=== PATIENT | female | born 1935 | race Caucasian/White ===

== ENCOUNTER 2021-04-17 12:07 | Outpatient (REF) | payer MEDICARE, OTHER, SELFPAY ==
--- NOTE | 2021-04-17 14:16 | MHC.AU.ANR ---
Adult Audiological Evaluation Date of Visit: 04/17/21 Reason for Appointment: Audiological evaluation due to concern for decreased hearing. Mrs. Mccray states that she has trouble hearing her , and he often notes that she doesn't hear him. She also notes difficulties hearing the TV. She feels she hears well in most other situations. Does patient feel they have a hearing loss?: Yes If Yes, Which Ear?: Both Ears When Was Hearing Difficulty First Noticed?: Gradually over the last few years Has hearing been tested previously?: No Hearing Handicap Inventory: HHIE SCORE: 20 Based on HHIE score, patient has: Mild to moderate perceived hearing handicap Ear History: Blocked/Full Sensation in Ear(s): Occasionally Medical History: Medical History: Head Injury, Heart Problems, High Blood Pressure, Thyroid Disease Medical History (Other): Six stents in heart, two knee replacements (right knee 20 years ago, left knee 09/07/20). Ladder fell on head and had stitches Allergies: NKA Medication List: Atorvastatin, Levothyroxine, Losartan, Omeprazole, Clopidogrel, Nystatin, Aspirin, Tylenol, Calcium & Vitamin D3, CBD Otoscopy: Right Ear: Unremarkable Left Ear: Some scarring on TM, possible middle-ear fluid Tympanometry: Tympanometry performed due to: To assess integrity of the middle ear system Right Ear: Normal Middle Ear System (Type A) Left Ear: Non-compliant Middle Ear System (Type B) Hearing Evaluation: Transducer(s) Used: Insert Earphones, Bone Conduction Method: Conventional Audiometry Stimuli Used: Right Ear: Description of Hearing: Mild sloping to severe sensorineural hearing loss from 250-8000 Hz. Left Ear: Description of Hearing: Moderate mixed hearing loss at 250 Hz, rising to mild sensorineural hearing loss from 500-2000 Hz, and sloping to a moderate mixed hearing loss at 3000 Hz, and a moderate sloping to profound sensorineural hearing loss from 4132-3095 Hz. Speech Recognition Threshold (SRT): Method Used: Monitored Live Voice Stimuli Used: Spondee Words Right Ear: 35 dBHL Left Ear: 35 dBHL Word Discrimination: Method: Recorded Lists Word Lists Used: NU-6 Right Ear: 88% at 75 dBHL Left Ear: 88% at 75 dBHL Interpretation of Results: Mild sloping to severe/profound sensorineural hearing loss bilaterally, with a slight mixed component in the left ear in the presence of middle-ear dysfunction. Recommendations: Based on her hearing loss, Ms. Mccray is considered a candidate for hearing aids. However, she doesn't feel her hearing loss is impacting her enough to pursue hearing aids at this time. Discussed communication strategies to use with her . Advised to return in one year to monitor hearing and left middle-ear dysfunction, or sooner if changes are noted. Diagnosis: Primary Diagnosis: H90.3 Bilateral Sensorineural Hearing Loss Secondary Diagnosis: H69.92 Unspecified Eustachian Tube Dysfunction, Left Ear Services Performed: Services Performed: Comprehensive Audiological Evaluation (CPT 24423) Tympanometry (CPT 65041) Signature: Provider: Ruperto Posey, CCC-A
== END 2021-04-17 12:08 | disposition home or self-care (01) ==
LOC: HO.SH 12:07
PROVIDERS: Visit Provider Physician Assistant
DX: H90.3 Sensorineural hearing loss, bilateral (principal); H69.92 Unspecified Eustachian tube disorder, left ear
CPT/HCPCS: 92557; 92567

== ENCOUNTER 2021-07-14 15:18 | Outpatient (REF) | payer MEDICARE, OTHER, SELFPAY ==
--- NOTE | ~2021-07-14 | XR_ITS ---
EXAMINATION: XR HUMERUS, RIGHT CLINICAL INFORMATION: Contusion right upper arm COMPARISON: None TECHNIQUE: AP and lateral views of the right humerus. FINDINGS: The bones and soft tissues are normal. No fracture. Imaged portions of the shoulder and elbow are unremarkable. XR/XR humerus RT IMPRESSION: Normal right humerus.
== END 2021-07-14 15:19 | disposition home or self-care (01) ==
LOC: HO.HMGCX 15:18
PROVIDERS: Visit Provider Internal Medicine
DX: S40.021A Contusion of right upper arm, initial encounter (principal)
CPT/HCPCS: 73060

== ENCOUNTER 2024-08-24 07:11 | Day surgery (SDC) | payer MEDICARE, OTHER, SELFPAY ==
--- OUTSIDE RECORDS SUMMARY | 2024-07-29 15:58 | XMS_ITS | Patient Health Record ---
[facility] Kaila giovanna Grady Address [address] [place] [address] Care Team Providers Care Aircraft Pilot Name Role Phone Marge Jeronimo Primary Care Provider Josie Street Unavailable [phone] Allergies Allergen (clinical drug ingredient) Drug/Non Drug Allergy documented on EMR Reaction Allergy Type Onset Date Status erythromycin Erythromycin Unknown Drug Allergy A ctive Reason For Referral No Information Medications Medication SIG (Take, Route, Frequency, Duration) Notes Start Date End Date Status dilTIAZem HCl ER 120 MG 1 capsule Orally Twice a day Active Furosemide 20 MG TAKE 1 TABLET BY RISSA TH EVERY DAY Oral for 90 Active Losartan Potassium 50 MG TAKE 1 TABLET B Y MOUTH EVERYDAY AT BEDTIME Oral for 90 Days Active Aspirin Low Dose 81 MG 1 tablet Orally O nce a day for 30 day(s) 04/12/2023 Active Tylenol 04/12/2023 Active Calcium + D + K 04/12/2023 Act yolanda Nystatin 010428 UNIT/GM APPLY THIN LAYER TO ABDOMINAL FOLDS, NEEDED External for 30 Active Levothyroxine Sodium 112 MCG Oral for 90 Days Active Clopidogrel Bisulfate 75 MG TAKE 1 TABLE T BY MOUTH EVERY DAY Oral for 90 Days Active Omeprazole 20 MG TAKE 1 CAPSULE BY MO UTH EVERY DAY IN THE MORNING Oral for 90 Days Active Atorvastatin Calcium 40 MG TAKE 1 TABLET BY MOUTH EVERYDAY AT BEDTIME Oral for 90 Days Active Social History Tobacco Use: Social History Observation Description Date Details (start date - stop date) Never Smoker NA - NA Tobacco use other than smoking: Question Answer Notes Are you an other tobacco user? No Tobacco Control (Standard) Question Answer Notes Tobacco use: Nonsmoker Additional Findings: Tobacco non-user Current no nsmoker AUDIT-C (Standard) Question Answer Notes Did you have a drink containing alcohol in the p ast year? No Points 0 Interpretation Negative Problems Problem Type SNOMED Code ICD Code Onset Dates Problem Status W/U Status Risk Notes Problem Acquired hammer toe of right foot (6497208082106163) Other hammer toe(s) (acquired), right foot (M20.41) Active confirmed Problem Acquired hammer toe of left foot (2514904499906962) Other hammer toe(s) (acquired), left foot (M20.42) Active confirmed Problem Atherosclerosis of torres martinez arteries of the extremities (522574566471259) Atherosclerosis of torres martinez artery of both lower extremities, with unspecified presence of clinical manifestation (I70.203) Active confirmed Q7(A), Q8(2B), Q9(1B,2 C) Problem Localized, primary osteoarthritis of the ankle and/or foot (556196251) Arthritis of joint of lesser toe, left (M19.072) Active confirmed Problem Localized, primary osteoarthritis of the ankle and/or foot (764144614) Arthritis of joint of lesser toe, right (M19.071) Active confirmed Vital Signs Blood pressure diastolic 77 mm Hg 06/18/2024 Height 5 ft in 06/18/2024 Blood pressure systolic 125 mm Hg 06/18/2024 Weight 150 lbs 06/18/2024 BMI 29.29 kg/m2 06/18/2024 Procedures Procedure Date Ordered Date Performed Result Body Sit e 55431-NQHRNOQ NAIL, 1-08/05/2023 N/A 65663-MJUPDOX NAIL, 1-11/28/2023 N/A 66613-QVYXLDT NAIL, 1-03/16/2024 N/A 51052-TXZZ SKIN LESIONS, OVER 4 03/16/2024 N/A G1362-OVWCHABC DYSTROPHIC NAILS ANY # 03/16/2024 N/A 38597-WAHZBQU NAIL, 1-06/18/2024 N/A 95716-SHZY SKIN LESIONS, OVER 4 06/18/2024 N/A F5106-LIJJEXTZ DYSTROPHIC NAILS ANY # 06/18/2024 N/A Encounters Encounter Location Date Provider Diagnosis [facility] [address] [place] [address] 08/05/2023 Josie Black Tinea unguium B35.1 and Pain in right toe(s) M79.[address] [address] 11/28/2023 Josie Black Tinea unguium B35.1 and Pain in right toe(s) M79.[address] [address] 03/16/2024 Josie Black Tinea unguium B35.1 ; Pain in right toe(s) M79.674 ; Other hammer toe(s) (acquired), right foot M20.41 ; Pain in left toe(s) M79.675 ; Other hammer toe(s) (acquired), left foot M20.42 and Atherosclerosis of torres martinez artery of both lower extremities, with unspecified presence of clinical manifestation I70.[address] [address] 06/18/2024 Josie Black Tinea unguium B35.1 ; Pain in right toe(s) M79.674 ; Other hammer toe(s) (acquired), right foot M20.41 ; Pain in left toe(s) M79.675 and Atherosclerosis of torres martinez artery of both lower extremities, with unspecified presence of clinical manifestation I70.203 Assessments Encounter Date Diagnosis (ICD Code) Assessment Notes Treatment Notes Treatment Clinical Notes Section Notes 08/05/2023 Tinea unguium (ICD-10 - B35.1) 08/05/2023 Pain in right toe(s) (ICD-10 - M79.674) 11/28/2023 Tinea unguium (ICD-10 - B35.1) 11/28/2023 Pain in right toe(s) (ICD-10 - M79.674) 03/16/2024 Tinea unguium (ICD-10 - B35.1) 06/18/2024 Tinea unguium (ICD-10 - B35.1) 06/18/2024 Pain in right toe(s) (ICD-10 - M79.674) 03/16/2024 Pain in right toe(s) (ICD-10 - M79.674) 03/16/2024 Other hammer toe(s) (acquired), right foot (ICD-10 - M20.41) 06/18/2024 Other hammer toe(s) (acquired), right foot (ICD-10 - M20.41) 06/18/2024 Pain in left toe(s) (ICD-10 - M79.675) 03/16/2024 Pain in left toe(s) (ICD-10 - M79.675) 03/16/2024 Other hammer toe(s) (acquired), left foot (ICD-10 - M20.42) 06/18/2024 Atherosclerosis of torres martinez artery of both lower extremities, with unspecified presence of clinical manifestation (ICD-10 - I70.203) Q7(A), Q8(2B), Q9(1B,2C) 03/16/2024 Atherosclerosis of torres martinez artery of both lower extremities, with unspecified presence of clinical manifestation (ICD-10 - I70.203) Q7(A), Q8(2B), Q9(1B,2C) Plan Of Treatment Pending Test Test Name Order Date 46995-EBWPMRF NAIL, -04/22/2023 30954-XYBVISS NAIL, 02-2208/05/2023 44311-YTJOZKS NAIL, 02-2211/28/2023 51786-ADVCDOG NAIL, 02-2203/16/2024 72627-TWNNPZR NAIL, -06/18/2024 71491-Fikityns Plate 04/22/2023 40716-FALA SKIN LESIONS, OVER 4 06/19/19 25 35645-MMXY SKIN LESIONS, OVER 4 03/16/19 25 Y7951-BMEWLACU DYSTROPHIC NAILS ANY # A8788-EKLYAKBL DYSTROPHIC NAILS ANY # Next Appt Details Provider Name:Josie Pimentel , 10/01/2024 01:00:00 PM, [address], [place], [address], Insurance Providers Payer Name Payer Address Payer Phone Subscriber Number Group Number Insured Name Patient Relationship to Insured Coverage Start Date Coverage End Date Medicare National [employer] [address] [facility] [place] [address] [id number] Guerda Mccray Self - patient is the insured [facility] [address] [place] [address] [phone] [id number] Guerda Mccray Self - patient is the insured Medical (General) History Medical History History ICD Code Arthritis covid-19 Hiatal hernia High blood pressure Reflux ( GERD) thyroid Measles Mumps Chicken pox Joint implants/screws stints - heart tail bone fracture Hallux valgus (acquired), left foot M20. 12 Hallux valgus (acquired), right foot M20 .11 Surgical History Surgery Date(Month/Year) knee replacement 2002 & 2021 carpal tunnel surgery
[2024-08-19 15:27] VITALS: BMI 28.7
--- NOTE | 2024-08-20 10:05 | HO.ANESPROP2 ---
Documented by User: Usha Saeed NP 08/20/24 10:11 HPI - Anesthesia Eval Consult details Narrative: 89yo F for Right Cataract Extraction IOL Insertion No previous cataract on record CAD s/p stents x 6 2014 Aortic stenosis - requested ECHO [facility] Active Problems Active Problems: All Active Problems Contusion of arm, right (Acute) Past Medical History Medical History (Updated 08/19/24 @ 16:13 by Carolyn Hamilton, ELIJAH) History of positive PPD Esophageal reflux Pure hypercholesterolemia Osteoporosis Aortic insufficiency Microalbuminuria Spondylosis of cervical region without myelopathy or radiculopathy Right carpal tunnel syndrome Osteoarthritis Left carpal tunnel syndrome Hx of closed fracture (09/2023) Hypothyroidism Pre-diabetes Aortic stenosis HTN (hypertension) CAD (coronary artery disease) Bilateral cataracts Surgical History Surgical History (Updated 08/19/24 @ 15:12 by Carolyn Hamilton RN) History of heart artery stent (2014) Social History Social History Patient Tobacco Use Status: Former Tobacco user Second Hand Smoke Exposure: No Have you been hit, kicked, punched, or otherwise hurt by someone within the past year? If so, by whom?: No Are you DNR?: No Advance Directives: No Advance Directives Information Provided: Yes Advance Directives on File: No Patient : No : No Poor oral hygiene: No Meds Allergies Allergy/AdvReac Type Severity Reaction Status Date / Time azithromycin Allergy Unknown Unknown Verified 07/14/21 14:46 erythromycin base Allergy Unknown Verified 08/19/24 15:21 Home Medications ?Medication ?Instructions ?Recorded ?Confirmed ?Last Taken ?Type atorvastatin 40 mg tablet 40 mg PO DAILY 07/14/21 08/19/24 Unknown History clopidogrel 75 mg tablet 75 mg PO DAILY 07/14/21 08/19/24 Unknown History levothyroxine 112 mcg tablet 112 mcg PO QAM 07/14/21 08/19/24 Unknown History losartan 50 mg tablet 50 mg PO DAILY 07/14/21 08/19/24 Unknown History nystatin 100,000 unit/gram topical 1 appl topical BID 07/14/21 08/19/24 Unknown History cream omeprazole 20 mg capsule,delayed 20 mg PO BID 07/14/21 08/19/24 Unknown History release acetaminophen 650 mg 650 mg PO Q6H PRN Pain 08/19/24 08/19/24 Unknown History tablet,extended release aspirin 81 mg tablet 81 mg PO DAILY 08/19/24 08/19/24 Unknown History calcium 600 mg (as 1 tab PO DAILY 08/19/24 08/19/24 Unknown History carbonate)-vitamin D3 10 mcg (400 unit) tablet furosemide 20 mg tablet 20 mg PO DAILY 08/19/24 08/19/24 Unknown History Exam Height,Weight and Vital Signs: Height 5 ft Weight 66.6 kg Assessment and Plan Assessment Anesthesia Assessment: Chart Reviewed Documented by User: Daylin Bill MD 08/24/24 07:50 [facility] Past Medical History Medical History (Updated 08/19/24 @ 16:13 by Carolyn Hamilton RN) History of positive PPD Esophageal reflux Pure hypercholesterolemia Osteoporosis Aortic insufficiency Microalbuminuria Spondylosis of cervical region without myelopathy or radiculopathy Right carpal tunnel syndrome Osteoarthritis Left carpal tunnel syndrome Hx of closed fracture (09/2023) Hypothyroidism Pre-diabetes Aortic stenosis HTN (hypertension) CAD (coronary artery disease) Bilateral cataracts Family History Family history of problems with anesthesia: No Surgical History Surgical History (Updated 08/19/24 @ 15:12 by Carolyn Hamilton RN) History of heart artery stent (2014) History of Problems with Anesthesia: No Social History Social History Patient Tobacco Use Status: Former Tobacco user Second Hand Smoke Exposure: No Have you been hit, kicked, punched, or otherwise hurt by someone within the past year? If so, by whom?: No Are you DNR?: No Advance Directives: No Advance Directives Information Provided: Yes Advance Directives on File: No Patient : No : No Poor oral hygiene: No Meds Allergies Allergy/AdvReac Type Severity Reaction Status Date / Time azithromycin Allergy Unknown Unknown Verified 07/14/21 14:46 erythromycin base Allergy Unknown Verified 08/19/24 15:21 Home Medications ?Medication ?Instructions ?Recorded ?Confirmed ?Last Taken ?Type atorvastatin 40 mg tablet 40 mg PO DAILY 07/14/21 08/19/24 Unknown History clopidogrel 75 mg tablet 75 mg PO DAILY 07/14/21 08/19/24 Unknown History levothyroxine 112 mcg tablet 112 mcg PO QAM 07/14/21 08/19/24 Unknown History losartan 50 mg tablet 50 mg PO DAILY 07/14/21 08/19/24 Unknown History nystatin 100,000 unit/gram topical 1 appl topical BID 07/14/21 08/19/24 Unknown History cream omeprazole 20 mg capsule,delayed 20 mg PO BID 07/14/21 08/19/24 Unknown History release acetaminophen 650 mg 650 mg PO Q6H PRN Pain 08/19/24 08/19/24 Unknown History tablet,extended release aspirin 81 mg tablet 81 mg PO DAILY 08/19/24 08/19/24 Unknown History calcium 600 mg (as 1 tab PO DAILY 08/19/24 08/19/24 Unknown History carbonate)-vitamin D3 10 mcg (400 unit) tablet furosemide 20 mg tablet 20 mg PO DAILY 08/19/24 08/19/24 Unknown History Exam Airway Mallampati Class: II TM Dist: >3cm Neck ROM: Full Heart: rrr Lungs: cta Assessment and Plan Assessment Anesthesia Assessment: Anesthesia Plan Discussed Final Anesthetic Review Family History of Problems with Anesthesia: No History of Problems with Anesthesia: No NPO: Yes ASA Class: III Final Preanesthetic Review: No Changes in Pt Med Stat, Meds/Allgs Chart Reviewed and Consent Obtained/Reviewed Patient Risk: Low Procedure Risk: Low Anesthetic Plan Anesthetic Plan: MAC: Disposition: Standard PACU
[2024-08-24] MEDS: Tetracaine HCl/PF 0.5% Oph Sol 4 ML DROPS 1 DROP EYE-RIGHT (07:40)
[2024-08-24 07:41] VITALS: BP 173/62; PULSE 78; RESP 16; TEMP 37.1; O2SAT 98
[2024-08-24] MEDS: Cyclopentolate 1 % Ophth Sol 2 ML DRPBTL 1 DROP EYE-RIGHT ×3 (07:44→07:57)
[2024-08-24] MEDS: Lactated Ringers 500 ML 50 ML IV (07:49)
[2024-08-24] MEDS: Tropicamide 1 % Ophth Sol 3 ML BTL 1 DROP EYE-RIGHT ×3 (07:50→07:58)
[2024-08-24] MEDS: Ketorolac Tromethamine 0.5% Op 5 ML DROPS 1 DROP EYE-RIGHT ×3 (07:51→07:59)
[2024-08-24] MEDS: Phenylephrine HCL 2.5% Oph SoL 2 ML BOTTLE 1 DROP EYE-RIGHT ×3 (07:52→08:00)
--- NOTE | 2024-08-24 08:39 | MHC.SHP ---
Pre-Procedural Eval Section A - 24 Hr Update-Section A only Date of Service: 08/24/24 The patient is an INPATIENT: No Changes since office visit: No Cold of Flu in the past 2 weeks, No New Medical Problems, No Changes in Medication and No Patient answered all questions The patient has been examined within 24 hours of the surgical procedure. The History & Physical has been completed within 30 days and I have reviewed it.: Yes Section B - Complete if H&P > 30 days Chief Complaint: Age-related nuclear cataract, right eye Allergies: Allergies Allergy/AdvReac Type Severity Reaction Status Date / Time azithromycin Allergy Unknown Unknown Verified 07/14/21 14:46 erythromycin base Allergy Unknown Verified 08/19/24 15:21 Plan Diagnosis/Plan: Unchanged I have reviewed the history and physical and performed a pertinent physical examination on my patient. No changes have occurred unless specified. Time Spent With Patient Time: Total time managing care of this patient today ____ minutes.
--- NOTE | 2024-08-24 08:40 | P.PCNO_ITS ---
Ophthalmology Procedure Procedure Date of Service: 08/24/24 Ophthalmology Viscoelastic: Healon Duet Dual Pack Pro Ophthalmology Lenses: IOL Acrysof MP - MA60AC (20.5) Procedure Notes: PREOPERATIVE DIAGNOSIS: Decreased visual acuity right eye secondary to cataract POSTOPERATIVE DIAGNOSIS: Same PROCEDURE: Right cataract extraction with intraocular lens insertion SURGEON: Ap Cavazos M.D. ANESTHESIA: Topical/MAC ESTIMATED BLOOD LOSS: None COMPLICATIONS: None After obtaining informed consent, the patient was brought to the operating room suite and placed in the supine position. After adequate sedation per anesthesia, topical drops of Tetracaine were given to the right eye. The eye was then prepped and draped in the usual sterile fashion. The operating room microscope was then positioned over the operative eye and a lid speculum placed. A paracentesis was created. Viscoelastic was then instilled into the anterior chamber. A three plane incision was then created temporally, utilizing a 2.85 mm keratome. Capsulotomy forceps were then utilized to create a circular tear capsulotomy. Hydrodissection and hydrodelineation were carried out until adequate mobilization of the nucleus occurred. Phacoemulsification was then utilized to remove the dense central nu cleus followed by removal of the cortical material utilizing the automated aspiration irrigation unit. Viscoelastic was instilled into the posterior capsular bag followed by placement of a posterior chamber intraocular lens without difficulty. The residual Viscoelastic was then removed utilizing the automated IA machine. The wound was checked and found to be watertight. The patient tolerated the procedure well and the lid speculum was removed. Intracameral injection of Vigamox 0.1 mL followed by a subtenon injection of Kenalog-40 0.2 mL were administered. The patient will be seen in the a.m.
[2024-08-24 09:03] VITALS: BP 152/58; PULSE 65; RESP 17; TEMP 36.5; O2SAT 99
== END 2024-08-24 09:15 | disposition home or self-care (01) ==
PROVIDERS: PCP Internal Medicine; Visit Provider Ophthalmology
PROC: (CPT 66985; principal; 2024-08-24 09:30)
DX: H25.11 Age-related nuclear cataract, right eye (principal); H52.4 Presbyopia; H18.413 Arcus senilis, bilateral; H04.123 Dry eye syndrome of bilateral lacrimal glands; I10 Essential (primary) hypertension; E78.00 Pure hypercholesterolemia, unspecified; R73.03 Prediabetes; E03.9 Hypothyroidism, unspecified; I25.10 Atherosclerotic heart disease of native coronary artery without angina pectoris; Z95.5 Presence of coronary angioplasty implant and graft; M81.0 Age-related osteoporosis without current pathological fracture; Z79.01 Long term (current) use of anticoagulants; Z79.82 Long term (current) use of aspirin; Z79.899 Other long term (current) drug therapy; Z88.1 Allergy status to other antibiotic agents; Z96.653 Presence of artificial knee joint, bilateral
CPT/HCPCS: 66984; J2250; J3301; V2630

== ENCOUNTER 2024-09-07 07:11 | Day surgery (SDC) | payer MEDICARE, OTHER, SELFPAY ==
[2024-08-19 15:36] VITALS: BMI 28.7
--- NOTE | 2024-09-04 09:59 | HO.ANESPROP2 ---
Documented by User: Usha Saeed NP 09/04/24 10:05 HPI - Anesthesia Eval Consult details Narrative: 89yo F for Left Cataract Extraction IOL Insertion Right eye 08/24/24: Midaz 0.5 CAD s/p stents x 6 2014 Aortic stenosis - moderate to severe by gradient PMFSH Active Problems Active Problems: All Active Problems Contusion of arm, right (Acute) Past Medical History Medical History History of positive PPD Esophageal reflux Pure hypercholesterolemia Osteoporosis Aortic insufficiency Microalbuminuria Spondylosis of cervical region without myelopathy or radiculopathy Right carpal tunnel syndrome Osteoarthritis Left carpal tunnel syndrome Hx of closed fracture (09/2023) Hypothyroidism Pre-diabetes Aortic stenosis HTN (hypertension) CAD (coronary artery disease) Bilateral cataracts Family History Family history of problems with anesthesia: No Surgical History Surgical History History of surgery History of knee replacement H/O: hysterectomy Hx of right cataract extraction (08/24/24) History of heart artery stent (2014) History of Problems with Anesthesia: No Social History Social History Patient Tobacco Use Status: Former Tobacco user Second Hand Smoke Exposure: No Use of substances other than those prescribed or required for medical reasons: No Are you DNR?: No Advance Directives: No Advance Directives Information Provided: Yes Patient : No : No Poor oral hygiene: No Meds Allergies Allergy/AdvReac Type Severity Reaction Status Date / Time azithromycin Allergy Unknown Unknown Verified 07/14/21 14:46 erythromycin base Allergy Unknown Verified 08/19/24 15:21 Home Medications ?Medication ?Instructions ?Recorded ?Confirmed ?Last Taken ?Type atorvastatin 40 mg tablet 40 mg PO DAILY 07/14/21 08/19/24 08/23/24 History clopidogrel 75 mg tablet 75 mg PO DAILY 07/14/21 08/19/24 09/07/24 History levothyroxine 112 mcg tablet 112 mcg PO QAM 07/14/21 08/19/24 09/07/24 History losartan 50 mg tablet 50 mg PO DAILY 07/14/21 08/19/24 08/23/24 History nystatin 100,000 unit/gram topical 1 appl topical BID 07/14/21 08/19/24 08/23/24 History cream omeprazole 20 mg capsule,delayed 20 mg PO BID 07/14/21 08/19/24 08/23/24 History release acetaminophen 650 mg 650 mg PO Q6H PRN Pain 08/19/24 08/19/24 09/07/24 History tablet,extended release aspirin 81 mg tablet 81 mg PO DAILY 08/19/24 08/19/24 08/23/24 History calcium 600 mg (as 1 tab PO DAILY 08/19/24 08/19/24 08/23/24 History carbonate)-vitamin D3 10 mcg (400 unit) tablet furosemide 20 mg tablet 20 mg PO DAILY 08/19/24 08/19/24 08/23/24 History Exam Height,Weight and Vital Signs: Height 5 ft Weight 66.6 kg Narrative Narrative: ECHO 2023 Assessment and Plan Assessment Anesthesia Assessment: Chart Reviewed Final Anesthetic Review Family History of Problems with Anesthesia: No History of Problems with Anesthesia: No Documented by User: Shari Montez MD 09/07/24 08:22 [facility] Past Medical History Medical History History of positive PPD Esophageal reflux Pure hypercholesterolemia Osteoporosis Aortic insufficiency Microalbuminuria Spondylosis of cervical region without myelopathy or radiculopathy Right carpal tunnel syndrome Osteoarthritis Left carpal tunnel syndrome Hx of closed fracture (09/2023) Hypothyroidism Pre-diabetes Aortic stenosis HTN (hypertension) CAD (coronary artery disease) Bilateral cataracts Surgical History Surgical History History of surgery History of knee replacement H/O: hysterectomy Hx of right cataract extraction (08/24/24) History of heart artery stent (2014) Social History Social History Patient Tobacco Use Status: Former Tobacco user Second Hand Smoke Exposure: No Use of substances other than those prescribed or required for medical reasons: No Are you DNR?: No Advance Directives: No Advance Directives Information Provided: Yes Patient : No : No Poor oral hygiene: No Meds Allergies Allergy/AdvReac Type Severity Reaction Status Date / Time azithromycin Allergy Unknown Unknown Verified 07/14/21 14:46 erythromycin base Allergy Unknown Verified 08/19/24 15:21 Home Medications ?Medication ?Instructions ?Recorded ?Confirmed ?Last Taken ?Type atorvastatin 40 mg tablet 40 mg PO DAILY 07/14/21 08/19/24 08/23/24 History clopidogrel 75 mg tablet 75 mg PO DAILY 07/14/21 08/19/24 09/07/24 History levothyroxine 112 mcg tablet 112 mcg PO QAM 07/14/21 08/19/24 09/07/24 History losartan 50 mg tablet 50 mg PO DAILY 07/14/21 08/19/24 08/23/24 History nystatin 100,000 unit/gram topical 1 appl topical BID 07/14/21 08/19/24 08/23/24 History cream omeprazole 20 mg capsule,delayed 20 mg PO BID 07/14/21 08/19/24 08/23/24 History release acetaminophen 650 mg 650 mg PO Q6H PRN Pain 08/19/24 08/19/24 09/07/24 History tablet,extended release aspirin 81 mg tablet 81 mg PO DAILY 08/19/24 08/19/24 08/23/24 History calcium 600 mg (as 1 tab PO DAILY 08/19/24 08/19/24 08/23/24 History carbonate)-vitamin D3 10 mcg (400 unit) tablet furosemide 20 mg tablet 20 mg PO DAILY 08/19/24 08/19/24 08/23/24 History Exam Airway Mallampati Class: II TM Dist: <=3cm Neck ROM: Limited Heart: rrr Lungs: cta Assessment and Plan Assessment Anesthesia Assessment: Anesthesia Plan Discussed Final Anesthetic Review NPO: Yes ASA Class: III Final Preanesthetic Review: No Changes in Pt Med Stat, Meds/Allgs Chart Reviewed, Consent Obtained/Reviewed and Anes Risks/Benef Reviewed Patient Risk: Intermediate Procedure Risk: Low Anesthetic Plan Anesthetic Plan: MAC: Disposition: Standard PACU
[2024-09-07 07:56] VITALS: BP 181/63; PULSE 68; RESP 16; TEMP 36.7; O2SAT 95
[2024-09-07] MEDS: Lactated Ringers 500 ML 50 ML IV (08:03)
[2024-09-07] MEDS: Tetracaine HCl/PF 0.5% Oph Sol 4 ML DROPS 1 DROP EYE-LEFT (08:03)
[2024-09-07] MEDS: Tropicamide 1 % Ophth Sol 3 ML BTL 1 DROP EYE-LEFT ×3 (08:04→08:12)
[2024-09-07] MEDS: Cyclopentolate 1 % Ophth Sol 2 ML DRPBTL 1 DROP EYE-LEFT ×3 (08:04→08:12)
[2024-09-07] MEDS: Phenylephrine HCL 2.5% Oph SoL 2 ML BOTTLE 1 DROP EYE-LEFT ×3 (08:06→08:14)
[2024-09-07] MEDS: Ketorolac Tromethamine 0.5% Op 5 ML DROPS 1 DROP EYE-LEFT ×3 (08:06→08:13)
--- NOTE | 2024-09-07 08:14 | ECG_ITS ---
Test Reason : stat pre op Blood Pressure : */* mmHG Vent. Rate : 59 BPM Atrial Rate : 59 BPM P-R Int : 200 ms QRS Dur : 94 ms QT Int : 422 ms P-R-T Axes : 8 -8 127 degrees QTcB Int : 417 ms Sinus bradycardia with sinus arrhythmia Left ventricular hypertrophy with repolarization abnormality ( R in aVL , Carlitos product , Romhilt-Perez ) Abnormal ECG No previous ECGs available Referred By: Shari Montez Electronically Signed By: Oh Salas
[2024-09-07 08:32] VITALS: BP 165/51; PULSE 66
--- NOTE | 2024-09-07 08:46 | MHC.SHP ---
Pre-Procedural Eval Section A - 24 Hr Update-Section A only Date of Service: 09/07/24 The patient is an INPATIENT: No Changes since office visit: No Cold of Flu in the past 2 weeks, No New Medical Problems, No Changes in Medication and No Patient answered all questions The patient has been examined within 24 hours of the surgical procedure. The History & Physical has been completed within 30 days and I have reviewed it.: Yes Section B - Complete if H&P > 30 days Chief Complaint: Age-related nuclear cataract, left eye Allergies: Allergies Allergy/AdvReac Type Severity Reaction Status Date / Time azithromycin Allergy Unknown Unknown Verified 07/14/21 14:46 erythromycin base Allergy Unknown Verified 08/19/24 15:21 Plan Diagnosis/Plan: Unchanged I have reviewed the history and physical and performed a pertinent physical examination on my patient. No changes have occurred unless specified. Time Spent With Patient Time: Total time managing care of this patient today ____ minutes.
--- NOTE | 2024-09-07 08:47 | HO.PNOPHT ---
Ophthalmology Procedure Procedure Date of Service: 09/07/24 Ophthalmology Viscoelastic: Healon Duet Dual Pack Pro Ophthalmology Lenses: IOL Acrysof MP - [id number] (20.5) Procedure Notes: PREOPERATIVE DIAGNOSIS: Decreased visual acuity left eye secondary to cataract POSTOPERATIVE DIAGNOSIS: Same PROCEDURE: Left cataract extraction with intraocular lens insertion SURGEON: Ap Cavazos M.D. ANESTHESIA: Topical/MAC ESTIMATED BLOOD LOSS: None COMPLICATIONS: None After obtaining informed consent, the patient was brought to the operation room suite and placed in the supine position. After adequate sedation per anesthesia, topical drops of Tetracaine were given to the left eye. The eye was then prepped and draped in the usual sterile fashion. The operating room microscope was then positioned over the operative eye and a lid speculum placed. A paracentesis was created. Viscoelastic was then instilled into the anterior chamber. A three plane incision was then created temporally, utilizing a 2.85 mm keratome. Capsulotomy forceps were then utilized to create a circular tear capsulotomy. Hydrodissection and hydrodelineation were carried out until adequate mobilization of the nucleus occurred. Phacoemulsification was then utilized to remove the dense central nucleus followed by removal of the cortical material utilizing the automated aspiration irrigation unit. Viscoat elastic was instilled into the posterior capsular bag followed by placement of a posterior chamber intraocular lens without difficulty. The residual Viscoat elastic was then removed utilizing the automated IA machine. The wound was check and found to be watertight. The patient tolerated the procedure well and the lid speculum was removed. Intracameral injection of Vigamox 0.1 mL followed by a subtenon injection of Kenalog-40 0.2 mL were administered. The patient will be seen in the a.m.
[2024-09-07 09:10] VITALS: BP 179/62; PULSE 68; RESP 16; TEMP 36.7; O2SAT 98
== END 2024-09-07 09:25 | disposition home or self-care (01) ==
PROVIDERS: PCP Internal Medicine; Visit Provider Ophthalmology
PROC: (CPT 66985; principal; 2024-09-07 09:00)
DX: H25.12 Age-related nuclear cataract, left eye (principal); H52.4 Presbyopia; H18.413 Arcus senilis, bilateral; H04.123 Dry eye syndrome of bilateral lacrimal glands; I10 Essential (primary) hypertension; I25.10 Atherosclerotic heart disease of native coronary artery without angina pectoris; Z95.5 Presence of coronary angioplasty implant and graft; I35.2 Nonrheumatic aortic (valve) stenosis with insufficiency; R73.03 Prediabetes; E78.00 Pure hypercholesterolemia, unspecified; E03.9 Hypothyroidism, unspecified; M81.0 Age-related osteoporosis without current pathological fracture; Z79.899 Other long term (current) drug therapy; Z79.01 Long term (current) use of anticoagulants; Z79.82 Long term (current) use of aspirin; Z88.1 Allergy status to other antibiotic agents
CPT/HCPCS: 66984; 93005; J2704; J3301; V2630

== ENCOUNTER → 2024-09-07 08:14 | Outpatient (BNV) | payer MEDICARE, OTHER, SELFPAY | PROVIDERS: PCP Internal Medicine; Visit Provider Internal Medicine Cardiovascular Disease | DX: I49.9 Cardiac arrhythmia, unspecified (principal); I51.7 Cardiomegaly; R00.1 Bradycardia, unspecified | CPT/HCPCS: 93010 ==